=== PATIENT | male | born 1990 | race Caucasian/White ===

== ENCOUNTER → 2020-01-19 14:49 | Outpatient (CLI) | payer OTHER, SELFPAY ==
[2020-01-21 11:45] LABS: Covid-19 Nasal PCR Sendout Lex Not Detected
== END ==
PROVIDERS: Visit Provider Emergency Medicine
DX: Z03.818 Encounter for observation for suspected exposure to other biological agents ruled out (principal)
CPT/HCPCS: U0004

== ENCOUNTER → 2020-02-04 17:40 | Outpatient (CLI) | payer OTHER, SELFPAY ==
[2020-02-06 08:55] LABS: Covid-19 Nasal PCR Sendout Lex NOT DETECTED
== END ==
PROVIDERS: PCP Physician Assistant; Visit Provider Physician Assistant
DX: Z03.818 Encounter for observation for suspected exposure to other biological agents ruled out (principal)
CPT/HCPCS: U0004

== ENCOUNTER → 2020-02-12 16:49 | Outpatient (CLI) | payer OTHER, SELFPAY ==
--- NOTE | 2020-02-12 21:29 | PC.NURSE ---
results called to patients,
--- NOTE | 2020-02-12 21:35 | PC.NURSE ---
Dr. Fernandez notified of postive result
== END ==
PROVIDERS: Visit Provider Physician Assistant
DX: Z20.828 Contact with and (suspected) exposure to other viral communicable diseases (principal); U07.1 COVID-19
CPT/HCPCS: U0003